=== PATIENT | female | born 1955 | race Caucasian/White ===

== ENCOUNTER → 2017-01-09 | Outpatient (CLI) | payer BC ==
[~2017-01-09] MED LIST: ACET-1138 PO; ASPEC325 PO; DOXY100C76 PO; FRRG PO; MULT-506 PO; RXC5 PO; VITACAP14 PO
== END | disposition home or self-care (01) ==
LOC: C.PAPS 15:28
PROVIDERS: ATTEND Obstetrics & Gynecology
DX: Z01.419 Encounter for gynecological examination (general) (routine) without abnormal findings (principal); N95.2 Postmenopausal atrophic vaginitis

== ENCOUNTER 2025-10-24 07:17 | Observation (INO) ==
--- NOTE | 2025-09-29 15:47 | PAT Medication Instructions ---
Medication Instructions Date of Service September 29, 2025 Home Medications levothyroxine 50 mcg tablet 75 mcg PO QAM atorvastatin 20 mg tablet 20 mg PO HS cholecalciferol (vitamin D3) 25 mcg (1,000 unit) tablet (Vitamin D3) 0 mcg PO DAILY DO NOT take the morning of surgery cholecalciferol (vitamin D3) 25 mcg (1,000 unit) tablet (Vitamin D3) 0 mcg PO DAILY Take morning of surgery With a small sip of water, OTHERWISE NOTHING TO EAT OR DRINK AFTER MIDNIGHT: levothyroxine 50 mcg tablet 75 mcg PO QAM Take evening before surgery atorvastatin 20 mg tablet 20 mg PO HS Other Notes If you have any questions please call us at [phone] or [phone] or [phone] or [phone]
--- NOTE | 2025-10-07 08:48 | Anesthesiology Consultation ---
Date of Service October 07, 2025 Assessment & Plan (1) Encounter for pre-operative examination: - Infectious disease screening: Per assessment on 10/07/25- No known recent infectious disease contacts or current infectious disease symptoms. - Outpatient joint assessment: Pt currently scheduled for inpatient pathway. If surgeon requests review for outpatient joint pathway, patient is an acceptable candidate for outpatient joint program from anesthesia standpoint pending surgeon's office assessment that patient is motivated, has good support and completes [facility] Program preop requirements. Chart Review Chart Review: Acceptable Risk for Surgery and Patient seen in Pre Admission Testing Teaching & Discussion Pre-Anesthesia Teaching/Discussion Notes: Instructed NPO after midnight before surgery,except medications with 15 cc of water. Medication instructions provided according to the PAT guidelines. History Surgery Operation Date: 10/24/25 13:00 Proposed Procedures p Right Robotic Total Knee Arthroplasty - Phong Yee DO Height/Weight Height: 5 ft 2 in Weight: 83.6 kg Allergies Allergy/AdvReac Type Severity Reaction Status Date / Time No Known Allergies Allergy Verified 09/29/25 14:34 Medications Home Medications Medication Instructions Recorded Confirmed Last Taken levothyroxine 50 mcg tablet 75 mcg PO QAM 10/09/20 09/29/25 Unknown atorvastatin 20 mg tablet 20 mg PO HS 09/29/25 09/29/25 Unknown cholecalciferol (vitamin D3) 25 0 mcg PO DAILY 09/29/25 09/29/25 Unknown mcg (1,000 unit) tablet (Vitamin D3) Past Medical History Medical History History of colon polyps History of right breast cancer Dx 1990, hx surgery History of vertigo Positional with head movement, "please move slowly" Hyperlipidemia Hypothyroid Osteoarthritis Osteopenia Tinnitus Exercise / Class Metabolic Activity II 4-5 Yardwork/Stairs/Walk up hill (one FS: No CP, no SOB) Past Family History Family History Father Hypertension Heart disease Mother Cancer Denies family history of Hearing loss No family history of adverse response to anesthesia No family history of bleeding disorder Allergies Stroke Asthma Past Surgical History Surgical History H/O bilateral mastectomy 1990 History of anesthesia reaction Awareness during left knee replacement surgery, could hear sounds, no pain (2016, [facility]) History of colonoscopy History of left knee replacement (2016) Past Anesthesia History No Family Hx of Anesthesia Complications and Other (Awareness during left knee replacement surgery, could hear sounds, no pain (2016, [facility])) History of PONV No Hx of PONV and Hx of Motion Sickness Social History Smoking Status: Never smoker Do You Dip or Chew Tobacco: No Hx Alcohol Use: Yes (~1 glass wine every few months) Hx Substance Use: No substance use type: does not use Review of Systems Patient denies chest pain, shortness of breath, dyspnea on exertion, fever, chills, cough, wheezing, palpitations. Physical Exam Vital Signs BP 100/66 P 55 TEMP 98.0 SP02 99%RA RESP 16 Physical Full cervical extension range of motion. Full TMJ range of motion. TMD 3 finger breaths Mallampati Score III Dentition: intact, + crowns Lungs: clear throughout to auscultation Cardiac: regular rate and rhythm, no murmurs noted Spine: normal Carotid arteries: negative bruit Extremities: no LE edema Lab Results Anesthesia Preop Results Results Anesthesia Widget: WBC 5.59 K/ul (4.8-10.8) 10/07/25 Hgb 14.1 g/dL (12.0-16.0) 10/07/25 Hct 43.4 % (37.0-47.0) 10/07/25 Plt 228 K/uL (130-400) 10/07/25 Na 140 mmol/L (136-145) 10/07/25 K 4.4 mmol/L (3.5-5.1) 10/07/25 Cl 106 mmol/L (98-107) 10/07/25 CO2 29 mmol/L (21-32) 10/07/25 BUN 15 mg/dl (6-23) 10/07/25 Creat 0.75 mg/dl (0.6-1.2) 10/07/25 Glucose Level 88 mg/dl (70-99(Fasting)) 10/07/25 PT 10.6 Seconds (9.0-12.0) 10/07/25 PTT 25 Seconds (21-31) 10/07/25 INR 1.0 (0.9-1.1) 10/07/25 Blood Type A Positive 10/07/25 Antibody Screen NEGATIVE 10/07/25 Testing Electrocardiogram Date: 10/07/25 SB at 53bpm. "Otherwise normal ECG" Chest X-Ray Date: 10/07/25 FINDINGS: Heart size and pulmonary vasculature are normal. No consolidation or pleural effusion. IMPRESSION: No acute findings.
[~2025-10-24 07:17] MED LIST changes: -ACET-1138 PO; -ASPEC325 PO; +BUPIVACAINE 0.25% PF 30 ML VIAL ONE; +BUPIVACAINE 0.5 % 5 MG/1 ML PF 10ML VIAL ONE; -DOXY100C76 PO; -FRRG PO; +LR 15ML/HR IV SCH; -MULT-506 PO; -RXC5 PO; -VITACAP14 PO
[2025-10-24] MEDS ORDERED: MIDAZOLAM HCL 1 MG/ML 2ML VIAL ONE (07:24)
[2025-10-24] MEDS ORDERED: PROPOFOL IV EMULSION 10 MG/ML 20 ML VIAL IV ONE ×3 (07:24)
[2025-10-24] MEDS ORDERED: ONDANSETRON INJ 2 MG/ML 2 ML VIAL ONE (07:24)
[2025-10-24] MEDS: LR 500ML BOLUS, THEN 15ML/HR IV SCH (07:51)
[2025-10-24] MEDS: GABAPENTIN 300 MG CAP PO SCH (07:51)
[2025-10-24] MEDS: ACETAMINOPHEN 500 MG TAB PO SCH ×2 (07:51→14:56)
[2025-10-24] MEDS: FAMOTIDINE 20 MG TAB PO SCH (07:51)
[2025-10-24] MEDS: dexAMETHasone**PF** 10 MG/ML VIAL IV SCH (08:01)
[2025-10-24] MEDS: LR 60ML/HR IV SCH (08:01)
--- NOTE | 2025-10-24 08:16 | History & Physical Bridge Note ---
Date of Service October 24, 2025 History & Physical Bridge Note I have examined the patient, reviewed the History & Physical and in the interval since the performance of the History & Physical I have noted the following changes of clinical significance: no changes noted
[2025-10-24] MEDS ORDERED: ATROPINE SULFATE 0.1 MG/ML 10ML SYR IV PRN (08:46)
[2025-10-24] MEDS ORDERED: PROMETHAZINE HCL 6.25 MG in SODIUM CHLORIDE 0.9% 50 ML IV PRN (08:46)
[2025-10-24] MEDS ORDERED: ONDANSETRON INJ 2 MG/ML 2 ML VIAL IV PRN ×2 (08:46→14:29)
[2025-10-24] MEDS: TRANEXAMIC ACID 1,000 MG **IV Pre-op IV SCH (08:51)
[2025-10-24] MEDS: ROPIV 0.5% 246mg, Ketorolac 30mg, EPINEPHrine 0.5mg in NSS INFIL SCH (09:43)
[2025-10-24] MEDS: ORTHO JOINT ANESTHETIC ONE (09:43)
--- NOTE | 2025-10-24 10:20 | Operative Report ---
PG Post Operative Report Pre & Post Diagnosis Operation Date: 10/24/25 09:00 Pre-Op Diagnosis: Osteoarthritis Knee Right Post-Op Diagnosis: Osteoarthritis Knee Right I identified the patient and participated in the time-out.: Yes Procedure Operation Date: 10/24/25 09:00 Actual Procedures p Robotic Assisted Right Total Knee Arthroplasty(Right) - Phong Yee DO Surgeon Phong Yee DO Intramural Director Pramdo Vincent PA-C Estimated Blood Loss 30 Findings Consistent with Post-Op Diagnosis Specimens Right femoral and tibial bone Description of Procedure Implants used: I used a [employer] total knee arthroplasty system with a size 8 narrow PS femur, D tibia, 32 patella, and a size 12 CPS polyethylene bearing. All c omponents were press-fit in place. Nohemy arrived [facility] for the above procedure. She was seen in the preoperative holding area and the operative extremity was identified and signed. She was given a preoperative antibiotic, TXA, a spinal anesthetic and an adductor nerve block. She was taken back to the operating room and laid on the table in supine position. She was given basic sedation. The operative knee was then prepped and draped in sterile fashion. A timeout was done, and the patient and the operative extremity was properly identified. A midline incision was made directly over the patella. Dissection was taken down to the extensor mechanism. A medial parapatellar arthrotomy was used. The medial retinaculum was released and the fat pad was mostly excised. The knee was flexed and the ACL, PCL, and meniscus were removed. The alignment of the knee replacement was assisted with a [employer] robotic knee. The femoral array was pinned in the distal femur and the tibial array was pinned using a percutaneous technique in the upper shaft of the tibia. The robot was appropriately calibrated and the structure of the knee was mapped out. The components were then manipulated on the screen to account for any malalignment and to assist in gap balancing. Once I was happy with the placement of the components on the screen, a distal femoral cutting guide was brought in place. The distal femur was then resected. The femur measured to be a size 8. A 4-in-1 cutting block was then put into place by the robot and 2 peg holes were drilled. The 4-in-1 cutting block was then impacted into place and anterior, posterior, and chamfer cuts were made. The cutting block was then brought down to the tibia and pinned into place. The proximal tibia was then resected. The posterior aspect of the knee was then opened up and any additional meniscus fragments and osteophytes were removed. The tibia measured to be a size D. The tibial plate was then placed in the appropriate rotation and the tibia was drilled and punched. Trial components were then placed. The patella was then everted and 9 mm was resected off the posterior aspect of the patella. The patella measured to be a size 32. 3 peg holes were then drilled. A trial patella was placed. A size 12 CPS polyethylene insert was then trialed. The knee was brought through a full range of motion and felt to be stable. Trial components were then removed. The surrounding soft tissues were injected with 100 cc of an orthopedic pain control cocktail. All components were then press-fit into place. The final polyethylene insert was then snapped into place. The tourniquet was deflated. Hemostasis was obtained. Irrisept solution was then done for 3 minutes. The joint was then irrigated with normal saline solution. The medial parapatellar arthrotomy was then closed with #1 Vicryl suture. The skin was closed with 2-0 Vicryl, 3-0V lock suture, and [place] Zipline. A soft compressive dressing was placed. She was then transferred to a hospital bed and taken to the postanesthesia care unit in stable condition. She tolerated the procedure well. Pramod Vincent PA-C, was present for the entire procedure. He was critical for patient positioning, prepping, draping, retraction exposure, wound closure and application of sterile dressing. I attest to the content of the Intraoperative Record and any orders documented therein. Any exceptions are noted below.
--- NOTE | 2025-10-24 11:14 | XRay Report ---
XR knee RT 1 or 2V routine CLINICAL HISTORY: Surgical Post Op COMPARISON: 06/28/2025 FINDINGS: There are postsurgical changes of a total right knee arthroplasty and patellar resurfacing . The femoral tibial components appear well seated. There is gas within soft tissues consistent with recent surgery. Small lucencies within the distal femur and proximal tibia are felt to be postsurgica l. IMPRESSION: 1. Postsurgical changes of a total right knee arthroplasty. ACT 112: Negative or not required by law. Electronically signed by: Lele Kuhn M.D. 10/24/2025 11:13 AM
--- NOTE | 2025-10-24 13:51 | Anesthesiology Progress Note ---
Date of Service October 24, 2025 Anesthesia Post Procedure Vital Signs Vital Signs: Temp Pulse Pulse Resp BP Pulse Ox O2 Del Method 10/24/25 13:30 54 L 16 128/74 96 Room Air 10/24/25 13:15 68 18 134/80 96 Room Air 10/24/25 13:00 57 L 16 144/73 H 96 Room Air 10/24/25 12:45 54 L 16 154/81 H 95 Room Air 10/24/25 12:30 55 L 18 146/73 H 99 Room Air 10/24/25 12:20 58 L 16 119/79 97 Room Air 10/24/25 12:10 36.4 C L 57 L 18 149/81 H 100 Room Air 10/24/25 12:00 61 16 122/74 97 Room Air 10/24/25 11:50 60 20 149/81 H 100 Room Air 10/24/25 11:40 56 L 18 135/72 99 Room Air 10/24/25 11:30 62 18 143/82 H 100 Oxymask 10/24/25 11:20 61 12 145/79 H 100 Oxymask 10/24/25 11:10 58 L 16 120/70 100 Oxymask 10/24/25 11:00 62 18 118/72 100 Oxymask 10/24/25 11:00 72 16 125/73 100 Oxymask 10/24/25 10:50 36.0 C L 74 18 119/64 100 Oxymask 10/24/25 07:38 36.8 C 56 L 20 151/74 H 97 Room Air O2 Flow Rate 10/24/25 13:30 10/24/25 13:15 10/24/25 13:00 10/24/25 12:45 10/24/25 12:30 10/24/25 12:20 10/24/25 12:10 10/24/25 12:00 10/24/25 11:50 10/24/25 11:40 10/24/25 11:30 4 10/24/25 11:20 4 10/24/25 11:10 4 10/24/25 11:00 4 10/24/25 11:00 6 10/24/25 10:50 6 10/24/25 07:38 Transfer of Care Handoff Completed per policy Notes Mental Status: alert / awake / arousable and participated in evaluation Patient Amnestic to Procedure: Yes Nausea / Vomiting: adequately controlled Pain: adequately controlled Airway Patency, RR, SpO2: stable & adequate BP & HR: stable & adequate Hydration State: stable & adequate Neuraxial Anesthesia: was administered and sensory block is resolving Anesthetic Complications: no major complications apparent and Pt Satisfied with anesthetic care
[2025-10-24] MEDS ORDERED: NALOXONE HCL 0.4 MG/1 ML VIAL/CARP IV PRN (14:29)
[2025-10-24] MEDS ORDERED: HYDROmorphone INJ 0.5 MG/0.5 ML SYR IV PRN (14:29)
[2025-10-24] MEDS ORDERED: MAGNESIUM HYDROXIDE SUSP 30 ML UDC PO PRN (14:29)
[2025-10-24] MEDS ORDERED: METOCLOPRAMIDE HCL INJ 5 MG/ML 2 ML VIAL IV PRN (14:29)
[2025-10-24] MEDS: KETOROLAC TROMETHAMINE 15 MG/ML VIAL IV SCH (14:56)
[2025-10-24] MEDS: SODIUM CHLORIDE 0.9% 1,000 ML IV SCH (14:56)
[2025-10-24] MEDS: DOCUSATE SODIUM 100 MG CAP PO SCH (21:34)
[2025-10-24] MEDS: SENNA 8.6 MG TAB PO SCH (21:34)
[2025-10-24] MEDS: ASPIRIN 81 MG ECTAB PO SCH (21:34)
[2025-10-24] MEDS: ATORVASTATIN 20 MG TAB PO SCH (21:35)
[2025-10-25] MEDS: LEVOTHYROXINE SODIUM 75 MCG TABLET PO SCH (05:58)
[2025-10-25 07:12] VITALS: BP 125/74; PULSE 55; RESP 16; TEMP 97.7; O2SAT 97
[2025-10-25] MEDS: MULTIVITAMIN TAB PO SCH (07:41)
--- NOTE | 2025-10-25 08:55 | Orthopedic Progress Note ---
Date of Service October 25, 2025 Assessment & Plan (1) Status post total right knee replacement: * Continue Current Treatment * Disposition: home * Daily treatment: Physical Therapy/ Occupational Therapy per protocol * Weight bearing status: WBAT * Continue to monitor for ABLA * Pain control * DVT prophylaxis, ASA * Office/hospital f/u 2 weeks for progress check and staple/suture removal * Plan for discharge today pending PT/OT clearance Subjective . Active Problems: S/p right TKA POD 1 69 y/o female s/p right TKA. Doing well overall, pain managed and improved function. Denies fever/chills, chest pain/SOB, nausea/vomiting. Otherwise no complaints. Review of Systems All systems reviewed & are unremarkable except as noted in HPI & below. Physical Exam . * General: Alert and oriented, no acute distress * Constitutional: well-developed, well-nourished. * Respiratory: Normal respiratory effort, no distress * Gastrointestinal: No tenderness to palpation, no rigidity or guarding. * Skin: No rash or lesion. * Neurologic: Grossly normal * Musculoskeletal: right knee surgical dressing CDI, not removed for exam. Otherwise no obvious deformity or overlying skin changes RLE. Diffuse TTP distal thigh and knee region. Otherwise no specific tenderness of proximal thigh, lower leg, foot/ankle. AROM knee flexion 90 degrees. AROM foot/ankle intact. Sensation intact plantar/dorsal foot. Brisk capillary refill. Results & Data Results & Data Laboratory Results . Diagnostic Findings . Knee X-Ray 10/24/25 10:52 XR knee RT 1 or 2V routine CLINICAL HISTORY: Surgical Post Op COMPARISON: 06/28/2025 FINDINGS: There are postsurgical changes of a total right knee arthroplasty and patellar resurfacing. The femoral tibial components appear well seated. There is gas within soft tissues consistent with recent surgery. Small lucencies within the distal femur and proximal tibia are felt to be postsurgical. IMPRESSION: 1. Postsurgical changes of a total right knee arthroplasty. ACT 112: Negative or not required by law. Electronically signed by: Lele Kuhn M.D. 10/24/2025 11:13 AM PG Care Time/CCT Total # of Minutes Spent Total Time Spent with Patient: Total time spent is greater than 50% in coordination of care (as documented) at patient's floor/unit and/or counseling patient: Coding Level of Care Code 03726 Post Operative Follow-Up Diagnoses Status post total right knee replacement Z96.651
== END 2025-10-25 10:51 | disposition home or self-care (01) ==
LOC: 3E 07:17 → ASU 07:17

== ENCOUNTER 2025-11-15 17:06 | Observation (INO) ==
--- NOTE | 2025-11-15 17:29 | Emergency Department Note ---
Impression & Plan Acute upper gastrointestinal bleeding, Anemia ED Provider Note NAME: SAL RENDON AGE: 70 SEX: F : 1955 ARRIVES VIA: Walk-In INFORMANT: Patient, ED PROVIDER(S): Obinna Rios DO CHIEF COMPLAINT: GI bleeding HPI: The patient is a 70-year-old female who presented to the emergency department directly from her primary care physician's office. The patient has not feeling well over the last several days. She has had dark stool. She has had nausea. She has recently had a knee replacement. She has been taking baby aspirin for DVT prophylaxis from this. She does not have a history of NSAID use. She has no history of upper GI bleeding. She was seen in the office and had a heme test on her stool that was positive. She was sent to the emergency department for further evaluation. ROS: See above HPI for pertinent positives & negatives. A total of 10 systems reviewed and were otherwise negative. PAST MEDICAL HISTORY: See Below PAST SURGICAL HISTORY: See Below FAMILY HISTORY: See Below SOCIAL HISTORY: See Below HOME MEDICATIONS: See Below ALLERGIES: See Below VITALS: See Below PHYSICAL EXAMINATION: GENERAL: Patient is awake alert in no acute distress patient is resting comfortably and showing no signs of anxiety EYES: The conjunctivae are clear. The pupils are round and reactive. EARS, NOSE, MOUTH AND THROAT: The nose is without any evidence of any deformity NECK: The neck is nontender and supple. RESPIRATORY: Normal respiratory effort is noted there is no evidence of wheezing rhonchi or rales CARDIOVASCULAR: Regular rate and rhythm noted there no murmurs rubs or gallops normal S1 normal S2. GASTROINTESTINAL: The abdomen is soft. Abdomen is nontender. MUSCULOSKELETAL/EXTREMITIES: There is no evidence of gross deformity full range of motion is noted in the hips and shoulders. SKIN: There is no obvious evidence of any rash. There are no petechiae, pallor or cyanosis noted. NEUROLOGIC: Patient is awake alert and oriented x3 MEDICAL DECISION MAKING: The patient is a 70-year-old female who presented to the emergency department directly from her primary care physician's office. The patient was complaining of dark stool. She has been on aspirin status post right knee surgery. The patient was found to have heme positive stool in the office and was sent to the emergency department for further evaluation. I discussed the patient's laboratory and radiographic studies with her. I discussed her condition with the on-call cake batter mixer. They did recommend inpatient management. This reason I discussed her condition with the on-call [facility] hospitalist. They have agreed to evaluate the patient in the emergency department for further management and disposition. Triage Nursing notes reviewed. Prior medical records reviewed Vital Signs: reviewed and remarkable for no significant abnormalities Differential diagnosis: Diverticulosis, AVM, coagulopathy, colitis, inflammatory bowel disease, malignancy, Candice-Cavazos tear, esophagitis, peptic ulcer disease, variceal bleed, gastritis, epistaxis, fissure, hemorrhoids, as well as other pathologies. ER treatment provided: See below Diagnostics interpreted by me: ECG: EKG was obtained in the emergency department. My interpretation is normal sinus rhythm at 63 bpm. There is no ectopy. Nonspecific ST abnormalities are noted. This was great to a tracing from October 07, 2025. No changes were noted. Cardiac Monitoring: An order was placed for continuous cardiac monitoring. The monitor shows a rate of 67 bpm with sinus rhythm. Laboratory studies: As stated above and show below. Imaging studies: See below. Radiographic imaging was reviewed by myself Consultation(s): I discussed this case with Dr. Jean who is on-call for the gastroenterology group. I discussed this case with Dr. Hutchison who is on-call for the [facility] hospitalist group. Past Med/Surg History Problem List (Updated 11/15/25 @ 23:40 by Obinna Rios DO) Anemia (Acute) Acute upper gastrointestinal bleeding (Acute) Status post total right knee replacement DJD (degenerative joint disease) of knee Osteoarthritis of right knee Benign paroxysmal positional vertigo of left ear Impacted cerumen of both ears Tinnitus, bilateral Sensorineural hearing loss (SNHL) of left ear with restricted hearing of right ear Medical History History of vertigo Positional with head movement, "please move slowly" History of right breast cancer Dx 1990, hx surgery Osteoarthritis Osteopenia History of colon polyps Tinnitus Hyperlipidemia Hypothyroid Surgical History History of anesthesia reaction Awareness during left knee replacement surgery, could hear sounds, no pain (2016, [facility]) History of left knee replacement (2016) History of colonoscopy H/O bilateral mastectomy 1990 Family History Father Hypertension Heart disease Mother Cancer Denies family history of Hearing loss No family history of adverse response to anesthesia No family history of bleeding disorder Allergies Stroke Asthma Social History Smoking Status: Never smoker Do You Dip or Chew Tobacco: No; Hx Alcohol Use: Yes (~1 glass wine every few months) Alcohol Intake Frequency: Monthly or Less Hx Substance Use: No Preferred Language: Nepali Communication Ability: Effective Rehabilitation Attendant Required: No Beliefs That Will Affect Care: None marital status: Current Living Situation: Spouse current occupational status: retired How many Children do You have: 0 Feels Safe at Home: Yes Assistive Devices: Cane and Walker Allergies Allergies Allergy/AdvReac Type Severity Reaction Status Date / Time No Known Allergies Allergy Verified 10/24/25 07:22 Home Meds Home Medications Medication Instructions Recorded Confirmed levothyroxine 50 mcg tablet 75 mcg PO QAM 10/09/20 11/15/25 atorvastatin 20 mg tablet 20 mg PO HS 09/29/25 11/15/25 cholecalciferol (vitamin D3) 25 0 mcg PO DAILY 09/29/25 11/15/25 mcg (1,000 unit) tablet (Vitamin D3) Previous Rx's Medication Instructions Recorded cefadroxil 500 mg capsule 500 mg PO BID #20 caps 10/25/25 tramadol 50 mg tablet 50 mg PO Q6H PRN pain #30 tabs 11/03/25 Results & Data (ED) Vital Signs Vital Signs - 24 hr 11/15/25 17:07 11/15/25 17:11 11/15/25 17:16 Temperature 36.8 C Temperature Source Temporal Artery Scan Pulse Rate 82 61 Pulse Rate [Apical] 62 Respiratory Rate 18 18 18 Respiratory Effort / Characteristics Non-Labored Spontaneous Respiratory Depth Normal Blood Pressure 139/83 Blood Pressure [Right Arm] 173/95 H Blood Pressure Mean 101 Blood Pressure Mean [Right Arm] 121 Blood Pressure Position Sitting Pulse Oximetry 100 100 100 Oxygen Delivery Method Room Air Room Air Room Air Sepsis Recent Fever Within 48 Hours No Sepsis New/Unexplained Change in Mental Status No Sepsis Action Taken by Nursing No Action Required 11/15/25 17:50 11/15/25 19:07 11/15/25 21:00 Temperature Temperature Source Pulse Rate 59 L Pulse Rate [Apical] 62 66 Respiratory Rate 18 18 Respiratory Effort / Characteristics Respiratory Depth Blood Pressure Blood Pressure [Right Arm] 171/88 H 149/83 H Blood Pressure Mean Blood Pressure Mean [Right Arm] 115 105 Blood Pressure Position Pulse Oximetry 99 99 Oxygen Delivery Method Room Air Room Air Sepsis Recent Fever Within 48 Hours Sepsis New/Unexplained Change in Mental Status Sepsis Action Taken by Snf Medications Current Medication List: was personally reviewed by me Laboratory Data Attestation: I reviewed the patient's lab results. 11/15/25 17:35 11/15/25 17:35 Lab Results 11/15/25 11/15/25 Range/Units 17:35 17:46 WBC 10.24 (4.8-10.8) K/ul RBC 4.06 L (4.20-5.40) M/uL Hgb 11.8 L (12.0-16.0) g/dL Hct 36.7 L (37.0-47.0) % MCV 90.4 (80.0-100.0) fL MCH 29.1 (25.0-34.0) pg MCHC 32.2 (32.0-36.0) g/dL RDW Std Deviation 48.3 H (36.4-46.3) fL RDW Coeff of Babak 14.7 H (11.5-14.5) % Plt Count 376 (130-400) K/uL MPV 9.2 L (9.4-12.4) fL Immature Gran % (Auto) 0.4 % Neut % (Auto) 79.3 % Lymph % (Auto) 14.8 % Lee % (Auto) 4.6 % Eos % (Auto) 0.5 % Baso % (Auto) 0.4 % Neut # (Auto) 8.12 H (1.40-6.50) K/uL Lymph # (Auto) 1.52 (1.20-3.40) K/uL Lee # (Auto) 0.47 (0.11-0.59) K/uL Eos # (Auto) 0.05 (0.00-0.50) K/uL Baso # (Auto) 0.04 (0.00-0.20) K/uL Immature Gran # (Auto) 0.04 (0.01-0.20) K/uL PT 11.3 (9.0-12.0) Seconds INR 1.1 (0.9-1.1) Sodium 137 (136-145) mmol/L Potassium 3.7 (3.5-5.1) mmol/L Chloride 102 (98-107) mmol/L Carbon Dioxide 24 (21-32) mmol/L Anion Gap 11 (3-11) BUN 13 (6-23) mg/dl Creatinine 0.68 (0.6-1.2) mg/dl Est Cr Clr Drug Dosing 73.4 ml/min eGFR 92.48 BUN/Creatinine Ratio 19.1 (10-20) Glucose 103 H (70-99(Fasting)) mg/dl Calcium 8.9 (8.6-10.3) mg/dl Total Bilirubin 0.7 (0.2-1.0) mg/dl AST 18 (13-39) U/L ALT 18 (7-52) U/L Alkaline Phosphatase 156 H (34-104) U/L Troponin I High Sens 6.9 (0-14) pg/ml Total Protein 6.9 (6.0-8.3) gm/dl Albumin 3.8 (3.4-5.0) gm/dl Globulin 3.1 (2.5-4.0) gm/dl Albumin/Globulin Ratio 1.2 (0.9-2) Lipase 23 (11-82) U/L Blood Type A Positive Antibody Screen NEGATIVE Administered Medications Famotidine (Pepcid 20mg Iv Push) 20 mg in 5 mls @ 2.5 mls/min IV Q12 MELIZA Stop: 12/15/25 21:59 Last Admin: 11/15/25 22:30 Dose: 2.5 mls/min Documented By: asm Discontinued Medications Pantoprazole Sodium (Protonix) 40 mg in 10 mls @ 5 mls/min IV NOW ONE Stop: 11/15/25 17:17 Last Admin: 11/15/25 17:58 Dose: 5 mls/min Documented By: erm Famotidine (Pepcid 20mg Iv Push) 20 mg in 5 mls @ 2.5 mls/min IV NOW STA Stop: 11/15/25 17:17 Last Admin: 11/15/25 17:59 Dose: 2.5 mls/min Documented By: mendez Imaging Data Attestation: I personally reviewed and interpreted this imaging study as follows: My Impression: 1 view chest x-ray was obtained in the emergency department. My interpretation is no free air or definite infiltrate, final report below. Radiologist's Impression: Chest X-Ray 11/15/25 17:16 EXAM: Radiograph of the Chest 1 View INDICATION: Gastrointestinal bleeding TECHNIQUE: Frontal view of the chest. COMPARISON: 10/07/2025 FINDINGS: Lungs and pleural spaces: No consolidation or pulmonary edema. No pleural effusion or pneumothorax. Heart: Shape and configuration within normal limits allowing for technique. Mediastinum: Normal contour. Bones/joints: No fracture, erosion or dislocation. Soft tissues: No abnormality noted. No radiopaque foreign body noted. Vasculature: Mild ectatic calcified aorta. Upper abdomen: No visible free air subjacent to the diaphragms. IMPRESSION: No acute cardiopulmonary disease. ACT 112: N/A Electronically signed by Sheila Tate 11-15-2025 6:31 PM Discharge Plan Visit Data Chief Complaint: GI Bleed Stated Complaint: NAUSEA, TIRED, LOSS OF APPETITE, BLOOD IN STOOL ED Provider: Obinna Rios Discharge Problem: Acute upper gastrointestinal bleeding, Anemia Patient Disposition: Admitted As Inpatient Condition: Fair Discharge Instructions Interventions: ED Discharge Assessment Last Done: 11/15/25 21:58
[2025-11-15 17:55] LABS: Hematocrit (blood only) 36.7 % (37.0-47.0); Hemoglobin 11.8 g/dL (12.0-16.0); Immature Granulocytes # (auto) 0.04 K/uL (0.01-0.20); Immature Granulocytes % (auto) 0.4 %; Mean Corpuscular Hemoglobin 29.1 pg (25.0-34.0); Mean Corpuscular Volume 90.4 fL (80.0-100.0); Platelet Count 376 K/uL (130-400); RDW Standard Deviation 48.3 fL (36.4-46.3); Red Blood Count 4.06 M/uL (4.20-5.40); White Blood Count 10.24 K/ul (4.8-10.8)
[2025-11-15] MEDS: PANTOprazole 40 MG/10 ML SYR IV ONE (17:58)
[2025-11-15] MEDS: FAMOTIDINE 20MG IV PUSH 20 MG/5 ML SYR IV STA (17:59)
[2025-11-15 18:10] LABS: Alanine Aminotransferase 18.0 U/L (7-52); Albumin Globulin Ratio 1.2 (0.9-2); Albumin Level 3.8 gm/dl (3.4-5.0); Alkaline Phosphatase 156.0 U/L (34-104); Anion Gap 11.0 (3-11); Bilirubin,Total 0.7 mg/dl (0.2-1.0); Blood Urea Nitrogen 13.0 mg/dl (6-23); Calcium 8.9 mg/dl (8.6-10.3); Carbon Dioxide 24.0 mmol/L (21-32); Chloride 102.0 mmol/L (98-107); Creatinine Clr Calc Pharmacy 73.4 ml/min; Globulin 3.1 gm/dl (2.5-4.0); Glucose 103.0 mg/dl (70-99(Fasting)); Lipase 23.0 U/L (11-82); Potassium 3.7 mmol/L (3.5-5.1); Sodium 137.0 mmol/L (136-145); Total Protein 6.9 gm/dl (6.0-8.3)
[2025-11-15 18:17] LABS: INR 1.1 (0.9-1.1); Prothrombin Time 11.3 Seconds (9.0-12.0)
--- NOTE | 2025-11-15 18:32 | XRay Report ---
EXAM: Radiograph of the Chest 1 View INDICATION: Gastrointestinal bleeding TECHNIQUE: Frontal view of the chest. COMPARISON: 10/07/2025 FINDINGS: Lungs and pleural spaces: No consolidation or pulmonary edema. No pleural effusion or pneumothorax. Heart: Shape and configuration within normal limits allowing for technique. Mediastinum: Normal contour. Bones/joints: No fracture, erosion or dislocation. Soft tissues: No abnormality noted. No radiopaque foreign body noted. Vasculature: Mild ectatic calcified aorta. Upper abdomen: No visible free air subjacent to the diaphragms. IMPRESSION: No acute cardiopulmonary disease. ACT 112: N/A Electronically signed by Sheila Tate 11-15-2025 6:31 PM
--- NOTE | 2025-11-15 21:21 | History & Physical Report ---
Date of Service November 15, 2025 Assessment & Plan (1) Anemia: (2) Acute upper gastrointestinal bleeding: (3) Elevated alkaline phosphatase level: Plan 70-year-old female PMHx SNHL L ear, BPPV, OA, and MARIANELA s/p total R knee replacement presenting for dark stools with nausea and vomiting starting 9 days STONE FABRICATOR. Evaluation does reveal anemia of 11.8/36.7 with stable platelets and grossly unremarkable CMP. Alkaline phosphatase is however elevated at 156. Admission for anemia, suspected GI bleed. #Anemia/? GI bleed Postop 10/24/2025 R knee replacement, with dark stools and N/V ongoing since 11/06/2025. 81 mg of aspirin daily currently. No NSAID use, no coffee-ground emesis. - H&H 11.8/36.7, platelets WNL; BUN 13 - CBC, BMP am - EKG pending - Clear liquid for now, NPO midnight - IVF LR @ 80 mL/hr - Hold ASA - Zofran prn N/V - Pantoprazole 40 mg IV BID + famotidine 20 mg IV BID - GI consulted - appreciate input + recs #Elevated alkaline phosphatase No abdominal pain, no RUQ tenderness. Recent R knee replacement, ? bone turnover response. - Alkaline phosphatase 156 - Trend as appropriate - Hold atorvastatin day of arrival #Hypothyroidism- Levothyroxine - continue once diet Dispo: Obs, med/tele VTE prophylaxis: SCDs This document was dictated utilizing [employer]. Please excuse any grammatical errors that may be secondary to use of this software. Admission and Anticipated Discharge Date Admission Date: 11/15/2025 History of Present Illness Chief Complaint: N/V, black stool Primary Care Provider: Ramesh Cardenas, 70-year-old female PMHx SNHL L ear, BPPV, OA, and MARIANELA s/p total R knee replacement presenting for dark stools with nausea and vomiting starting 9 days STONE FABRICATOR. Reports that starting on 11/06/2025 she started to note that she was having dark stool, black in nature. Also reports that she has had some constipation which has been ongoing since her recent procedure on her R knee (replacement), as she has not been eating much. Every time that she eats, she states that she is experiencing nausea, sometimes with vomiting other times not. She states that some days are worse than others, but on the day of arrival she was only able to tolerate half an apple and a few crackers. She is not having any abdominal pain, but the vomiting does continue. She continues to experience anorexia. Her only dizziness is with position changes, none at baseline and no lightheadedness. Overall, patient's pain is tolerated with her recent knee surgery. She is denying chest pain, SOB, palpitations, abdominal pain, d iarrhea, URI symptoms, LUTS, weakness, syncope, or falls. Main concern is that her stool is very dark in nature. ED evaluation CBC without leukocytosis or leukopenia, H&H 10.8/36.7, platelets stable; PT/INR WNL; CMP BUN WNL, glucose 103, alkaline phosphatase 156; troponin 6.9; CXR no acute findings.; Provided with pantoprazole 40 mg IV, famotidine 20 mg IV in ED. Please see Dr. Weston attestation for adjustments/additions to treatment plan. Allergies Allergy/AdvReac Type Severity Reaction Status Date / Time No Known Allergies Allergy Verified 10/24/25 07:22 Home Medications Medication Instructions Recorded Confirmed Type levothyroxine 50 mcg tablet 75 mcg PO QAM 10/09/20 11/15/25 History atorvastatin 20 mg tablet 20 mg PO HS 09/29/25 11/15/25 History cholecalciferol (vitamin D3) 25 0 mcg PO DAILY 09/29/25 11/15/25 History mcg (1,000 unit) tablet (Vitamin D3) tramadol 50 mg tablet 50 mg PO Q6H PRN pain #30 tabs 11/03/25 11/15/25 Rx enoxaparin 40 mg/0.4 mL 40 mg (0.4 mL) subcut TODAY@0900 11/16/25 Rx subcutaneous syringe (Lovenox) 30 days #12 mL pantoprazole 40 mg tablet,delayed 40 mg PO BID #60 tabs 11/16/25 Rx release Past Med/Surg History Problem List (Updated 11/16/25 @ 08:48 by Floridalma Oscar PA-C) Melena Elevated alkaline phosphatase level Anemia (Acute) Acute upper gastrointestinal bleeding (Acute) Status post total right knee replacement DJD (degenerative joint disease) of knee Osteoarthritis of right knee Benign paroxysmal positional vertigo of left ear Impacted cerumen of both ears Tinnitus, bilateral Sensorineural hearing loss (SNHL) of left ear with restricted hearing of right ear Medical History History of vertigo Positional with head movement, "please move slowly" History of right breast cancer Dx 1990, hx surgery Osteoarthritis Osteopenia History of colon polyps Tinnitus Hyperlipidemia Hypothyroid Surgical History History of anesthesia reaction Awareness during left knee replacement surgery, could hear sounds, no pain (2016, [facility]) History of left knee replacement (2016) History of colonoscopy H/O bilateral mastectomy 1990 Family History Father Hypertension Heart disease Mother Cancer Denies family history of Hearing loss No family history of adverse response to anesthesia No family history of bleeding disorder Allergies Stroke Asthma Social History Smoking Status: Never smoker Do You Dip or Chew Tobacco: No; Hx Alcohol Use: No Hx Substance Use: No Preferred Language: Guyanese Communication Ability: Effective Desk Director Required: No Beliefs That Will Affect Care: None marital status: Current Living Situation: Spouse Current Living Situation Comment: [id number] [facility]ER current occupational status: retired How many Children do You have: 0 Feels Safe at Home: Yes Assistive Devices: Cane and Walker Review of Systems Review of Systems: All systems reviewed & are unremarkable except as noted in Subjective Physical Exam Physical Exam: General: No acute distress Skin: Warm and dry Head: Normocephalic, atraumatic Eyes: PERRL, conjunctivae clear, sclera non-icteric ENT: Wearing mask; external ear and ear canal without swelling; nose atraumatic; good dentition, tongue normal appearance, pharynx normal Neck: Supple, no LAD Cardio: RRR, no M/G/R, S1 and S2 normal Resp: No respiratory distress, Lungs CTA in all lobes bilaterally, no wheezes, rales, or rhonchi Abdomen: Soft, symmetric, nontender; No masses or hepatosplenomegaly; Bowel sounds normoactive MSK: No deformities; pulses palpable and equal; no edema. Neuro: Awake, alert; Sensation intact bilaterally; CN grossly intact Psych: Appropriate mood and affect; good judgement and insight. present in room at time of visit. Results & Data Results & Data Vital Signs (Past 12 Hours) Vital Signs Temp Pulse Pulse Resp BP BP Pulse Ox 11/15/25 19:07 62 18 171/88 H 99 11/15/25 17:50 59 L 11/15/25 17:16 61 18 100 11/15/25 17:11 36.8 C 82 18 139/83 100 11/15/25 17:07 62 18 173/95 H 100 O2 Del Method 11/15/25 19:07 Room Air 11/15/25 17:50 11/15/25 17:16 Room Air 11/15/25 17:11 Room Air 11/15/25 17:07 Room Air Laboratory Results 11/15/25 11/15/25 17:46 17:35 WBC 10.24 RBC 4.06 L Hgb 11.8 L Hct 36.7 L MCV 90.4 MCH 29.1 MCHC 32.2 RDW Std Deviation 48.3 H RDW Coeff of Babak 14.7 H Plt Count 376 MPV 9.2 L Immature Gran % (Auto) 0.4 Neut % (Auto) 79.3 Lymph % (Auto) 14.8 Coles % (Auto) 4.6 Eos % (Auto) 0.5 Baso % (Auto) 0.4 Neut # (Auto) 8.12 H Lymph # (Auto) 1.52 Coles # (Auto) 0.47 Eos # (Auto) 0.05 Baso # (Auto) 0.04 Immature Gran # (Auto) 0.04 PT 11.3 INR 1.1 Sodium 137 Potassium 3.7 Chloride 102 Carbon Dioxide 24 Anion Gap 11 BUN 13 Creatinine 0.68 Est Cr Clr Drug Dosing 73.4 eGFR 92.48 BUN/Creatinine Ratio 19.1 Glucose 103 H Calcium 8.9 Total Bilirubin 0.7 AST 18 ALT 18 Alkaline Phosphatase 156 H Troponin I High Sens 6.9 Total Protein 6.9 Albumin 3.8 Globulin 3.1 Albumin/Globulin Ratio 1.2 Lipase 23 Blood Type A Positive Antibody Screen NEGATIVE Diagnostic Findings Chest X-Ray 11/15/25 17:16 EXAM: Radiograph of the Chest 1 View INDICATION: Gastrointestinal bleeding TECHNIQUE: Frontal view of the chest. COMPARISON: 10/07/2025 FINDINGS: Lungs and pleural spaces: No consolidation or pulmonary edema. No pleural effusion or pneumothorax. Heart: Shape and configuration within normal limits allowing for technique. Mediastinum: Normal contour. Bones/joints: No fracture, erosion or dislocation. Soft tissues: No abnormality noted. No radiopaque foreign body noted. Vasculature: Mild ectatic calcified aorta. Upper abdomen: No visible free air subjacent to the diaphragms. IMPRESSION: No acute cardiopulmonary disease. ACT 112: N/A Electronically signed by Sheila Tate 11-15-2025 6:31 PM Medications Administered Pantoprazole 40 mg IV Famotidine 20 mg IV Code Status & VTE Plan Code Status Full Supervising Physician Co-Signing Physician Notes Attending addendum: I have physically seen this patient, have supervised the RAGHU's activities, and agree with the H&P unless as otherwise noted. Assessment and Plan: The patient is a 70-year-old female with past medical history including SNHL left ear, BPPV, OA, MARIANELA, and status post right TKA on 10/24/2025. She presents to the emergency department with complaint of dark stool, nausea and vomiting since 11/06. She has been on aspirin 81 mg daily for DVT prophylaxis post TKA. The patient received Protonix 40 mg IV, and famotidine 20 mg IV 20 ED, and was referred for evaluation for admission to the [facility] service. Anemia/upper GI bleeding- N.p.o. after midnight LR at 80 mL/h H&H every 6 hours Hold aspirin Type and screen ordered and pending Zofran 4 mg IV every 6 hours as needed Pantoprazole 40 mg IV twice daily Famotidine 20 mg IV twice daily Consult gastroenterology Remaining orders and notations as noted PG Care Time/CCT Total # of Minutes Spent Total Time Spent with Patient: Total time spent is greater than 50% in coordination of care (as documented) at patient's floor/unit and/or counseling patient: Coding Level of Care Code 03824 INT INP/OBS CARE 3/75MIN Diagnoses Anemia D64.9 Acute upper gastrointestinal bleeding K92.2 Elevated alkaline phosphatase level R74.8
[2025-11-15] MEDS ORDERED: ONDANSETRON INJ 2 MG/ML 2 ML VIAL IV PRN ×2 (21:42→21:58)
[2025-11-15] MEDS: FAMOTIDINE 20MG IV PUSH 20 MG/5 ML SYR IV SCH (22:30)
[2025-11-16] MEDS: LACTATED RINGER'S 1,000 ML IV SCH (03:01)
[2025-11-16 05:56] LABS: Hematocrit (blood only) 32.3 % (37.0-47.0); Hemoglobin 10.5 g/dL (12.0-16.0); Mean Corpuscular Hemoglobin 29.0 pg (25.0-34.0); Mean Corpuscular Volume 89.2 fL (80.0-100.0); Platelet Count 307 K/uL (130-400); RDW Standard Deviation 47.6 fL (36.4-46.3); Red Blood Count 3.62 M/uL (4.20-5.40); White Blood Count 7.14 K/ul (4.8-10.8)
[2025-11-16 06:10] LABS: Alanine Aminotransferase 12.0 U/L (7-52); Albumin Level 3.2 gm/dl (3.4-5.0); Alkaline Phosphatase 130.0 U/L (34-104); Bilirubin,Total 0.7 mg/dl (0.2-1.0); Total Protein 5.8 gm/dl (6.0-8.3)
[2025-11-16] MEDS: PANTOprazole 40 MG/10 ML SYR IV SCH (08:23)
--- NOTE | 2025-11-16 08:39 | Gastrointestinal Consultation ---
Date of Consultation November 16, 2025 Assessment & Plan (1) Melena: -Continue to monitor H/H -Continue IV PPI gtt -Keep NPO -EGD today for further evaluation Supervising Physician Co-Signing Physician Notes I saw and examined this patient with our nurse practitioner and agree with her assessment and plan. Clinical picture consistent with an upper GI bleed. Need to consider peptic ulcer disease, esophagitis, gastritis. Will proceed with endoscopy for further evaluation. History of Present Illness Reason for Consultation: Melena, heme positive stool Attending Physician: Brandee Washington MD History of Present Illness Patient seen in [facility] for [facility]. Patient is a 70 yo female with PMH of BPPV, OA, and arthritis who had total R knee replacement several weeks ago. She notes that over 1 week ago she began having dark stools. There was associated nausea/vomiting. She notes a decreased appetite. She takes a baby Aspirin daily. She took Tramadol after her surgery. She denies any other NSAID use. She went to her PCP and had a heme positive stool. The lab was closed, she was referred to Liya Bernstein for further evaluation. Current H/H 10.5/32.3. Hgb in September was 14.1. She denies abdominal pain, heartburn, reflux, hematochezia. BUN 13. Creatinine 0.68. No other associated symptoms. No history of EGD. Reports last colonoscopy with [facility] GI around 2016. I do not have a copy of this result on admission. She is currently on IV Protonix in the ED. She has been NPO since prior to midnight. Aspirin currently held. Allergies Allergy/AdvReac Type Severity Reaction Status Date / Time No Known Allergies Allergy Verified 10/24/25 07:22 Home Medications Medication Instructions Recorded Confirmed Type levothyroxine 50 mcg tablet 75 mcg PO QAM 10/09/20 11/15/25 History atorvastatin 20 mg tablet 20 mg PO HS 09/29/25 11/15/25 History cholecalciferol (vitamin D3) 25 0 mcg PO DAILY 09/29/25 11/15/25 History mcg (1,000 unit) tablet (Vitamin D3) cefadroxil 500 mg capsule 500 mg PO BID #20 caps 10/25/25 11/15/25 Rx tramadol 50 mg tablet 50 mg PO Q6H PRN pain #30 tabs 11/03/25 11/15/25 Rx Patient History Medical History History of vertigo Positional with head movement, "please move slowly" History of right breast cancer Dx 1990, hx surgery Osteoarthritis Osteopenia History of colon polyps Tinnitus Hyperlipidemia Hypothyroid Surgical History History of anesthesia reaction Awareness during left knee replacement surgery, could hear sounds, no pain (2016, [facility]) History of left knee replacement (2016) History of colonoscopy H/O bilateral mastectomy 1990 Family History Father Hypertension Heart disease Mother Cancer Denies family history of Hearing loss No family history of adverse response to anesthesia No family history of bleeding disorder Allergies Stroke Asthma Social History Smoking Status: Never smoker Do You Dip or Chew Tobacco: No; Hx Alcohol Use: No Hx Substance Use: No Preferred Language: Andorran Communication Ability: Effective Bale Coverer Required: No Beliefs That Will Affect Care: None marital status: Current Living Situation: Spouse Current Living Situation Comment: [id number] [employer] current occupational status: retired How many Children do You have: 0 Feels Safe at Home: Yes Assistive Devices: Walker Review of Systems Constitutional: no fever and no chills Respiratory: no cough Cardiovascular: no chest pain Gastrointestinal: + nausea and + melena; no abdominal pain , no vomiting, no coffee ground emesis and no blood in stools Physical Exam Constitutional: well developed Respiratory: normal respiratory effort Cardiovascular: Rate/Rhythm: regular rate Gastrointestinal (Abdomen): Inspection/Auscultation: abdomen normal to inspection Percussion/Palpation: abdomen nontender Psychiatric: Orientation: alert and oriented x 3 Results & Data Vital Signs (Past 12 Hours) Vital Signs Pulse Pulse Resp BP BP Pulse Ox O2 Del Method 11/16/25 07:12 57 L 11/16/25 06:21 58 L 17 95 11/16/25 06:12 67 18 95 11/16/25 06:00 136/77 11/16/25 06:00 136/77 11/16/25 06:00 136/77 11/16/25 06:00 136/77 11/16/25 06:00 136/77 11/16/25 06:00 57 L 17 97 11/16/25 05:51 60 21 97 11/16/25 05:42 72 19 97 11/16/25 05:30 115/80 11/16/25 05:30 115/80 11/16/25 05:30 115/80 11/16/25 05:30 115/80 11/16/25 05:30 65 14 11/16/25 05:30 115/80 11/16/25 05:30 115/80 11/16/25 05:21 63 17 11/16/25 05:12 63 20 98 11/16/25 05:00 54 L 19 96 11/16/25 05:00 128/78 11/16/25 05:00 128/78 11/16/25 05:00 128/78 11/16/25 05:00 128/78 11/16/25 05:00 128/78 11/16/25 04:51 56 L 19 95 11/16/25 04:42 57 L 17 96 11/16/25 04:30 137/86 11/16/25 04:30 137/86 11/16/25 04:30 137/86 11/16/25 04:30 137/86 11/16/25 04:30 137/86 11/16/25 04:30 61 20 97 11/16/25 04:21 58 L 19 96 11/16/25 04:12 66 19 95 11/16/25 04:00 138/84 11/16/25 04:00 138/84 11/16/25 04:00 138/84 11/16/25 04:00 138/84 11/16/25 04:00 138/84 11/16/25 04:00 61 18 96 11/16/25 03:51 57 L 20 95 11/16/25 03:42 57 L 20 95 11/16/25 03:30 65 18 97 11/16/25 03:30 140/80 11/16/25 03:30 140/80 11/16/25 03:30 140/80 11/16/25 03:30 140/80 11/16/25 03:30 140/80 11/16/25 03:21 63 18 96 11/16/25 03:12 62 17 96 11/16/25 03:00 71 12 99 11/16/25 03:00 143/83 H 11/16/25 03:00 143/83 H 11/16/25 03:00 143/83 H 11/16/25 03:00 143/83 H 11/16/25 03:00 143/83 H 11/16/25 02:51 58 L 22 97 11/16/25 02:42 59 L 24 96 11/16/25 02:30 59 L 19 96 11/16/25 02:30 124/76 11/16/25 02:30 124/76 11/16/25 02:30 124/76 11/16/25 02:30 124/76 11/16/25 02:30 124/76 11/16/25 02:21 54 L 24 97 11/16/25 02:12 64 24 97 11/16/25 02:00 56 L 17 96 11/16/25 02:00 125/76 11/16/25 02:00 125/76 11/16/25 02:00 125/76 11/16/25 02:00 125/76 11/16/25 02:00 125/76 11/16/25 01:51 62 18 97 11/16/25 01:42 61 19 97 11/16/25 01:30 60 18 97 11/16/25 01:30 159/80 H 11/16/25 01:30 159/80 H 11/16/25 01:30 159/80 H 11/16/25 01:30 159/80 H 11/16/25 01:30 159/80 H 11/16/25 01:21 59 L 18 97 11/16/25 01:12 81 25 H 99 11/16/25 01:00 18 11/16/25 00:51 18 97 11/16/25 00:42 86 20 96 11/16/25 00:30 65 24 95 11/16/25 00:30 145/89 H 11/16/25 00:30 145/89 H 11/16/25 00:30 145/89 H 11/16/25 00:30 145/89 H 11/16/25 00:30 145/89 H 11/16/25 00:21 62 18 95 11/16/25 00:12 73 19 97 11/16/25 00:00 64 16 97 11/16/25 00:00 147/98 H 11/16/25 00:00 147/98 H 11/16/25 00:00 147/98 H 11/16/25 00:00 147/98 H 11/16/25 00:00 147/98 H 11/15/25 23:51 70 17 97 11/15/25 23:42 72 16 95 11/15/25 23:30 70 15 98 11/15/25 23:30 157/83 H 11/15/25 23:30 157/83 H 11/15/25 23:30 157/83 H 11/15/25 23:30 157/83 H 11/15/25 23:30 157/83 H 11/15/25 23:21 70 19 97 11/15/25 23:12 63 17 99 11/15/25 23:02 67 11/15/25 23:00 172/89 H 11/15/25 23:00 172/89 H 11/15/25 23:00 172/89 H 11/15/25 23:00 172/89 H 11/15/25 23:00 172/89 H 11/15/25 23:00 71 15 97 11/15/25 22:53 62 18 157/86 H 98 Room Air 11/15/25 22:51 65 18 97 11/15/25 21:58 64 22 157/86 H 95 Room Air 11/15/25 21:00 66 18 149/83 H 99 Room Air PG Care Time/CCT Total # of Minutes Spent Total Time Spent with Patient: Total time spent is greater than 50% in coordination of care (as documented) at patient's floor/unit and/or counseling patient: Coding Level of Care Code 99400 INT INP/OBS CARE 3/75MIN Diagnoses Melena K92.1
--- NOTE | 2025-11-16 10:20 | Anesthesiology Consultation ---
Date of Service November 16, 2025 Assessment & Plan Chart Review Chart Review: Acceptable Risk for Surgery Consults Requested none ASA ASA2 Proposed Anesthesia Anesthesia Type: MAC Risk / Benefits Reviewed With: PT / POA / Parent / Guardian, Accepts Plan and Informed Consent Obtained History Surgery Operation Date: 11/16/25 16:45 Proposed Procedures p Esophagogastroduodenoscopy Dr. Ted Jean MD Height/Weight Height: 5 ft 2 in Weight: 80.3 kg Allergies Allergy/AdvReac Type Severity Reaction Status Date / Time No Known Allergies Allergy Verified 10/24/25 07:22 Medications Home Medications Medication Instructions Recorded Confirmed Last Taken levothyroxine 50 mcg tablet 75 mcg PO QAM 10/09/20 11/15/25 10/24/25 05:45 atorvastatin 20 mg tablet 20 mg PO HS 09/29/25 11/15/25 10/23/25 20:00 cholecalciferol (vitamin D3) 25 0 mcg PO DAILY 09/29/25 11/15/25 10/19/25 mcg (1,000 unit) tablet (Vitamin D3) cefadroxil 500 mg capsule 500 mg PO BID #20 caps 10/25/25 11/15/25 Unknown tramadol 50 mg tablet 50 mg PO Q6H PRN pain #30 tabs 11/03/25 11/15/25 Unknown Active Medications Generic Name Dose Route Start Last Admin Trade Name Freq PRN Reason Stop Dose Admin Pantoprazole Sodium 40 mg in 10 mls @ 5 mls/min 11/16/25 09:00 11/16/25 08:23 Protonix IV 12/16/25 08:59 5 mls/min BID MELIZA Administration Famotidine 20 mg in 5 mls @ 2.5 mls/min 11/15/25 22:00 11/16/25 08:23 Pepcid 20mg Iv Push IV 12/15/25 21:59 2.5 mls/min Q12 MELIZA Administration Lactated Ringer's 1,000 mls @ 80 mls/hr 11/16/25 01:30 11/16/25 03:01 Lr IV 11/16/25 13:59 80 mls/hr .[id number] MELIZA Administration Past Medical History Medical History History of vertigo Positional with head movement, "please move slowly" History of right breast cancer Dx 1990, hx surgery Osteoarthritis Osteopenia History of colon polyps Tinnitus Hyperlipidemia Hypothyroid Past Family History Family History Father Hypertension Heart disease Mother Cancer Denies family history of Hearing loss No family history of adverse response to anesthesia No family history of bleeding disorder Allergies Stroke Asthma Past Surgical History Surgical History History of anesthesia reaction Awareness during left knee replacement surgery, could hear sounds, no pain (2016, [facility]) History of left knee replacement (2016) History of colonoscopy H/O bilateral mastectomy 1990 Social History Smoking Status: Never smoker Do You Dip or Chew Tobacco: No Hx Alcohol Use: No alcohol intake frequency: other Hx Substance Use: No substance use type: does not use Physical Exam Vital Signs Last Vital Signs Temp 36.8 C 11/15/25 17:11 Pulse 57 L 11/16/25 09:00 Resp 17 11/16/25 09:00 BP 140/84 11/16/25 09:00 Pulse Ox 98 11/16/25 09:00 O2 Del Method Room Air 11/15/25 22:53 Constitutional no acute distress ENMT Mouth: no TMJ abnormality Thyromental Distance: < 3.5 Finger Breadths Mallampati Class: II Neck normal visual inspection Respiratory normal respiratory effort Cardiovascular Rate/Rhythm: regular rate Musculoskeletal Spine: normal cervical ROM Psychiatric Orientation: alert and oriented x 3 Testing Laboratory Results 11/16/25 05:11 11/15/25 17:35 PT 11.3 Seconds (9.0-12.0) 11/15/25 17:35 INR 1.1 (0.9-1.1) 11/15/25 17:35 Blood Type A Positive 11/15/25 17:46 Antibody Screen NEGATIVE 11/15/25 17:46
[2025-11-16 10:26] VITALS: RESP 16; TEMP 97.9
--- NOTE | 2025-11-16 11:26 | GI REPORT ---
[facility] Patient: SAL RENDON : 1955 Sex at : Female Age: 70 Years Procedure: Upper GI endoscopy Date: 11/16/2025 Attending Physician: Hunter Jean MD Referring MD: Referred Self Indications: - Suspected upper gastrointestinal bleeding Medications: - Monitored Anesthesia Care Complications: - No immediate complications. Procedure: - Prior to the procedure, a History and Physical was performed, and patient medications and allergies were reviewed. The patient's tolerance of previous anesthesia was also reviewed. The risks and benefits of the procedure and the sedation options and risks were discussed with the patient. All questions were answered, and informed consent was obtained. [Anticoagulant Agents] [Days Prior to Procedure]. [ASA Grade]. After reviewing the risks and benefits, the patient was deemed in satisfactory condition to undergo the procedure. - The egd scope was introduced through the mouth and advanced to the second part of the duodenum. - The upper GI endoscopy was accomplished without difficulty. - The patient tolerated the procedure well. Findings: - The examined esophagus was normal. - One non-bleeding cratered gastric ulcer with no stigmata of bleeding was found in the prepyloric region of the stomach. The lesion was 15 mm in largest dimension. Biopsies were taken with a cold forceps for Helicobacter pylori testing from antrum and body. - A few small sessile fundic gland polyps were found in the gastric body. Biopsies were taken with a cold forceps for histology. - The examined duodenum was normal. Impression: - Normal esophagus. - Non-bleeding gastric ulcer with no stigmata of bleeding. Biopsied. - A few fundic gland polyps. Biopsied. - Normal examined duodenum. Recommendation: - Resume previous diet. - Patient has a contact number available for emergencies. The signs and symptoms of potential delayed complications were discussed with the patient. Return to normal activities tomorrow. Written discharge instructions were provided to the patient. Procedure Code(s): - 68442, Esophagogastroduodenoscopy, flexible, transoral; with biopsy, single or multiple Diagnosis Code(s): - K25.9, Gastric ulcer, unspecified as acute or chronic, without hemorrhage or perforation - K31.7, Polyp of stomach and duodenum CPT(R) - 2024 copyright [employer]. All Rights Reserved. The CPT codes, CCI edits and ICD codes generated are intended as suggestions and were generated based on input data. These codes are preliminary and upon insurance risk manager review may be revised to meet current compliance and payer requirements. The provider is responsible for the final determination of appropriate codes, and modifiers. Hunter Jean MD This document has been electronically signed. Note Initiated:11/16/2025 Note Completed:11/16/2025 11:25 AM \\[email or web address]\[email or web address]\[id number]
--- NOTE | 2025-11-16 11:39 | Anesthesiology Progress Note ---
Date of Service November 16, 2025 Anesthesia Post Procedure Vital Signs Vital Signs: Temp Pulse Pulse Pulse Resp BP BP 11/16/25 11:26 59 L 16 139/75 11/16/25 11:09 65 16 85/53 L 11/16/25 10:20 36.6 C 16 142/78 H 11/16/25 09:00 140/84 11/16/25 09:00 140/84 11/16/25 09:00 140/84 11/16/25 09:00 140/84 11/16/25 09:00 140/84 11/16/25 09:00 57 L 17 11/16/25 08:51 59 L 12 11/16/25 08:42 58 L 19 11/16/25 08:30 65 21 11/16/25 08:30 133/78 11/16/25 08:30 133/78 11/16/25 08:30 133/78 11/16/25 08:30 133/78 11/16/25 08:30 133/78 11/16/25 08:22 137/71 11/16/25 08:22 137/71 11/16/25 08:22 137/71 11/16/25 08:22 137/71 11/16/25 08:22 137/71 11/16/25 08:21 76 16 11/16/25 08:12 70 19 11/16/25 08:00 65 21 11/16/25 08:00 133/79 11/16/25 08:00 133/79 11/16/25 08:00 133/79 11/16/25 08:00 133/79 11/16/25 08:00 133/79 11/16/25 07:51 56 L 19 11/16/25 07:42 58 L 16 11/16/25 07:30 138/84 11/16/25 07:30 138/84 11/16/25 07:30 138/84 11/16/25 07:30 138/84 11/16/25 07:30 138/84 11/16/25 07:30 61 20 11/16/25 07:21 54 L 18 11/16/25 07:12 56 L 15 11/16/25 07:12 57 L 11/16/25 07:00 56 L 17 11/16/25 07:00 127/81 11/16/25 07:00 127/81 11/16/25 07:00 127/81 11/16/25 07:00 127/81 11/16/25 07:00 127/81 11/16/25 06:51 58 L 20 11/16/25 06:42 56 L 15 11/16/25 06:30 59 L 19 11/16/25 06:30 133/87 11/16/25 06:30 133/87 11/16/25 06:30 133/87 11/16/25 06:30 133/87 11/16/25 06:21 58 L 17 11/16/25 06:12 67 18 11/16/25 06:00 136/77 11/16/25 06:00 136/77 11/16/25 06:00 136/77 11/16/25 06:00 136/77 11/16/25 06:00 136/77 11/16/25 06:00 57 L 17 11/16/25 05:51 60 21 11/16/25 05:42 72 19 11/16/25 05:30 115/80 11/16/25 05:30 115/80 11/16/25 05:30 115/80 11/16/25 05:30 115/80 11/16/25 05:30 65 14 11/16/25 05:30 115/80 11/16/25 05:30 115/80 11/16/25 05:21 63 17 11/16/25 05:12 63 20 11/16/25 05:00 54 L 19 11/16/25 05:00 128/78 11/16/25 05:00 128/78 11/16/25 05:00 128/78 11/16/25 05:00 128/78 11/16/25 05:00 128/78 11/16/25 04:51 56 L 19 11/16/25 04:42 57 L 17 11/16/25 04:30 137/86 11/16/25 04:30 137/86 11/16/25 04:30 137/86 11/16/25 04:30 137/86 11/16/25 04:30 137/86 11/16/25 04:30 61 20 11/16/25 04:21 58 L 19 11/16/25 04:12 66 19 11/16/25 04:00 138/84 11/16/25 04:00 138/84 11/16/25 04:00 138/84 11/16/25 04:00 138/84 11/16/25 04:00 138/84 11/16/25 04:00 61 18 11/16/25 03:51 57 L 20 11/16/25 03:42 57 L 20 11/16/25 03:30 65 18 11/16/25 03:30 140/80 11/16/25 03:30 140/80 11/16/25 03:30 140/80 11/16/25 03:30 140/80 11/16/25 03:30 140/80 11/16/25 03:21 63 18 11/16/25 03:12 62 17 11/16/25 03:00 71 12 11/16/25 03:00 143/83 H 11/16/25 03:00 143/83 H 11/16/25 03:00 143/83 H 11/16/25 03:00 143/83 H 11/16/25 03:00 143/83 H 11/16/25 02:51 58 L 22 11/16/25 02:42 59 L 24 11/16/25 02:30 59 L 19 11/16/25 02:30 124/76 11/16/25 02:30 124/76 11/16/25 02:30 124/76 11/16/25 02:30 124/76 11/16/25 02:30 124/76 11/16/25 02:21 54 L 24 11/16/25 02:12 64 24 11/16/25 02:00 56 L 17 11/16/25 02:00 125/76 11/16/25 02:00 125/76 11/16/25 02:00 125/76 11/16/25 02:00 125/76 11/16/25 02:00 125/76 11/16/25 01:51 62 18 11/16/25 01:42 61 19 11/16/25 01:30 60 18 11/16/25 01:30 159/80 H 11/16/25 01:30 159/80 H 11/16/25 01:30 159/80 H 11/16/25 01:30 159/80 H 11/16/25 01:30 159/80 H 11/16/25 01:21 59 L 18 11/16/25 01:12 81 25 H 11/16/25 01:00 18 11/16/25 00:51 18 11/16/25 00:42 86 20 11/16/25 00:30 65 24 11/16/25 00:30 145/89 H 11/16/25 00:30 145/89 H 11/16/25 00:30 145/89 H 11/16/25 00:30 145/89 H 11/16/25 00:30 145/89 H 11/16/25 00:21 62 18 11/16/25 00:12 73 19 11/16/25 00:00 64 16 11/16/25 00:00 147/98 H 11/16/25 00:00 147/98 H 11/16/25 00:00 147/98 H 11/16/25 00:00 147/98 H 11/16/25 00:00 147/98 H 11/15/25 23:51 70 17 11/15/25 23:42 72 16 11/15/25 23:30 70 15 11/15/25 23:30 157/83 H 11/15/25 23:30 157/83 H 11/15/25 23:30 157/83 H 11/15/25 23:30 157/83 H 11/15/25 23:30 157/83 H 11/15/25 23:21 70 19 11/15/25 23:12 63 17 11/15/25 23:02 67 11/15/25 23:00 172/89 H 11/15/25 23:00 172/89 H 11/15/25 23:00 172/89 H 11/15/25 23:00 172/89 H 11/15/25 23:00 172/89 H 11/15/25 23:00 71 15 11/15/25 22:53 62 18 157/86 H 11/15/25 22:51 65 18 11/15/25 21:58 64 22 157/86 H 11/15/25 21:00 66 18 149/83 H 11/15/25 19:07 62 18 171/88 H 11/15/25 17:50 59 L 11/15/25 17:16 61 18 11/15/25 17:11 36.8 C 82 18 139/83 11/15/25 17:07 62 18 173/95 H Pulse Ox O2 Del Method 11/16/25 11:26 99 Room Air 11/16/25 11:09 97 Room Air 11/16/25 10:20 98 Room Air 11/16/25 09:00 11/16/25 09:00 11/16/25 09:00 11/16/25 09:00 11/16/25 09:00 11/16/25 09:00 98 11/16/25 08:51 99 11/16/25 08:42 98 11/16/25 08:30 96 11/16/25 08:30 11/16/25 08:30 11/16/25 08:30 11/16/25 08:30 11/16/25 08:30 11/16/25 08:22 11/16/25 08:22 11/16/25 08:22 11/16/25 08:22 11/16/25 08:22 11/16/25 08:21 11/16/25 08:12 96 11/16/25 08:00 97 11/16/25 08:00 11/16/25 08:00 11/16/25 08:00 11/16/25 08:00 11/16/25 08:00 11/16/25 07:51 96 11/16/25 07:42 95 11/16/25 07:30 11/16/25 07:30 11/16/25 07:30 11/16/25 07:30 11/16/25 07:30 11/16/25 07:30 96 11/16/25 07:21 95 11/16/25 07:12 94 11/16/25 07:12 11/16/25 07:00 95 11/16/25 07:00 11/16/25 07:00 11/16/25 07:00 11/16/25 07:00 11/16/25 07:00 11/16/25 06:51 95 11/16/25 06:42 95 11/16/25 06:30 95 11/16/25 06:30 11/16/25 06:30 11/16/25 06:30 11/16/25 06:30 11/16/25 06:21 95 11/16/25 06:12 95 11/16/25 06:00 11/16/25 06:00 11/16/25 06:00 11/16/25 06:00 11/16/25 06:00 11/16/25 06:00 97 11/16/25 05:51 97 11/16/25 05:42 97 11/16/25 05:30 11/16/25 05:30 11/16/25 05:30 11/16/25 05:30 11/16/25 05:30 11/16/25 05:30 11/16/25 05:30 11/16/25 05:21 11/16/25 05:12 98 11/16/25 05:00 96 11/16/25 05:00 11/16/25 05:00 11/16/25 05:00 11/16/25 05:00 11/16/25 05:00 11/16/25 04:51 95 11/16/25 04:42 96 11/16/25 04:30 11/16/25 04:30 11/16/25 04:30 11/16/25 04:30 11/16/25 04:30 11/16/25 04:30 97 11/16/25 04:21 96 11/16/25 04:12 95 11/16/25 04:00 11/16/25 04:00 11/16/25 04:00 11/16/25 04:00 11/16/25 04:00 11/16/25 04:00 96 11/16/25 03:51 95 11/16/25 03:42 95 11/16/25 03:30 97 11/16/25 03:30 11/16/25 03:30 11/16/25 03:30 11/16/25 03:30 11/16/25 03:30 11/16/25 03:21 96 11/16/25 03:12 96 11/16/25 03:00 99 11/16/25 03:00 11/16/25 03:00 11/16/25 03:00 11/16/25 03:00 11/16/25 03:00 11/16/25 02:51 97 11/16/25 02:42 96 11/16/25 02:30 96 11/16/25 02:30 11/16/25 02:30 11/16/25 02:30 11/16/25 02:30 11/16/25 02:30 11/16/25 02:21 97 11/16/25 02:12 97 11/16/25 02:00 96 11/16/25 02:00 11/16/25 02:00 11/16/25 02:00 11/16/25 02:00 11/16/25 02:00 11/16/25 01:51 97 11/16/25 01:42 97 11/16/25 01:30 97 11/16/25 01:30 11/16/25 01:30 11/16/25 01:30 11/16/25 01:30 11/16/25 01:30 11/16/25 01:21 97 11/16/25 01:12 99 11/16/25 01:00 11/16/25 00:51 97 11/16/25 00:42 96 11/16/25 00:30 95 11/16/25 00:30 11/16/25 00:30 11/16/25 00:30 11/16/25 00:30 11/16/25 00:30 11/16/25 00:21 95 11/16/25 00:12 97 11/16/25 00:00 97 11/16/25 00:00 11/16/25 00:00 11/16/25 00:00 11/16/25 00:00 11/16/25 00:00 11/15/25 23:51 97 11/15/25 23:42 95 11/15/25 23:30 98 11/15/25 23:30 11/15/25 23:30 11/15/25 23:30 11/15/25 23:30 11/15/25 23:30 11/15/25 23:21 97 11/15/25 23:12 99 11/15/25 23:02 11/15/25 23:00 11/15/25 23:00 11/15/25 23:00 11/15/25 23:00 11/15/25 23:00 11/15/25 23:00 97 11/15/25 22:53 98 Room Air 11/15/25 22:51 97 11/15/25 21:58 95 Room Air 11/15/25 21:00 99 Room Air 11/15/25 19:07 99 Room Air 11/15/25 17:50 11/15/25 17:16 100 Room Air 11/15/25 17:11 100 Room Air 11/15/25 17:07 100 Room Air Transfer of Care Handoff Completed per policy Notes Mental Status: alert / awake / arousable Patient Amnestic to Procedure: Yes Nausea / Vomiting: adequately controlled Pain: adequately controlled Airway Patency, RR, SpO2: stable & adequate BP & HR: stable & adequate Hydration State: stable & adequate Anesthetic Complications: no major complications apparent
[2025-11-16] MEDS: LIDOCAINE 2% 2 ML VIAL/AMP(20MG/ML) INFIL ONE (13:25)
[2025-11-16] MEDS: PROPOFOL IV EMULSION 10 MG/ML 20 ML VIAL IV ONE (13:26)
--- NOTE | 2025-11-16 15:07 | Electrocardiogram Report ---
Test Reason : Blood Pressure : */* mmHG Vent. Rate : 63 BPM Atrial Rate : 63 BPM P-R Int : 132 ms QRS Dur : 74 ms QT Int : 414 ms P-R-T Axes : 8 -6 72 degrees QTcB Int : 423 ms Normal sinus rhythm Nonspecific ST abnormality Abnormal ECG When compared with ECG of 07-Oct-2025 09:10, No significant change was found Confirmed by Dre Lu ([id number]) on 11/16/2025 3:07:29 PM Referred By: REFERRED SELF Confirmed By: Dre Lu
[2025-11-16] MEDS ORDERED: Nursing to Pharmacy Communication SCH (15:15)
[2025-11-16 15:22] VITALS: BP 125/77; O2SAT 98
--- NOTE | 2025-11-16 15:26 | Discharge Summary ---
"Discharge Summary Date of Service November 16, 2025 Principal Dx & Hospital Course #1 = Principal Diagnosis (1) Anemia: (2) Acute upper gastrointestinal bleeding: (3) Elevated alkaline phosphatase level: Plan #Anemia/ possible GI bleed | Gastric ulcer. 70-year-old female PMHx SNHL L ear, BPPV, OA, and MARIANELA s/p total R knee replacement presenting for dark stools with nausea and vomiting starting 9 days [employer]. Evaluation does reveal anemia of 10.8/36.7 with stable platelets and grossly unremarkable CMP. Alkaline phosphatase is however elevated at 156. Admission for anemia, suspected GI bleed. Recent R TKA 10/24/[address] Yee, unclear what her post op Hgb was. Has been on ASA 81mg BID for DVT prophlaxis. Presents with hgb 11.8 and heme positive stools. Denies NSAID use. GI Consulted - s/p EGD 11/16 with 15mm nonbleeding ulcer. Small sessile polyps. bx pending. Recommend PPI BID and repeat EGD in 6-8 weeks. Discussed with ortho, would still recommend DVT proph - mutually agreed on lovenox 40mg daily. Patient education provided on receiving medication and doses of PPI and lovenox for 11/17 provided prior to leaving the hospital. Instructed patient to call ortho to determine final duration of lovenox. #Elevated alkaline phosphatase - No abdominal pain, no RUQ tenderness. Recent R knee replacement, ? bone turnover response. Downtrending to 130. Recommend outpatient follow. #Hypothyroidism- Levothyroxine continued Dispo:Discharge to home today Notes For Next Care Provider Medication Changes From Visit ASA changed to Lovenox for dvt proh with recent TKA PPI BID Admission HPI Per Admitting Provider 70-year-old female PMHx SNHL L ear, BPPV, OA, and MARIANELA s/p total R knee replacement presenting for dark stools with nausea and vomiting starting 9 days [employer]. Reports that starting on 11/06/2025 she started to note that she was having dark stool, black in nature. Also reports that she has had some constipation which has been ongoing since her recent procedure on her R knee (r eplacement), as she has not been eating much. Every time that she eats, she states that she is experiencing nausea, sometimes with vomiting other times not. She states that some days are worse than others, but on the day of arrival she was only able to tolerate half an apple and a few crackers. She is not having any abdominal pain, but the vomiting does continue. She continues to experience anorexia. Her only dizziness is with position changes, none at baseline and no lightheadedness. Overall, patient's pain is tolerated with her recent knee surgery. She is denying chest pain, SOB, palpitations, abdominal pain, diarrhea, URI symptoms, LUTS, weakness, syncope, or falls. Main concern is that her stool is very dark in nature. ED evaluation CBC without leukocytosis or leukopenia, H&H 10.8/36.7, platelets stable; PT/INR WNL; CMP BUN WNL, glucose 103, alkaline phosphatase 156; troponin 6.9; CXR no acute findings.; Provided with pantoprazole 40 mg IV, famotidine 20 mg IV in ED. Please see Dr. Weston attestation for adjustments/additions to treatment plan. Discharge Exam General: NAD, vitals as above, sitting on the side of bed Pulm: breathing unlabored CV: well perfused extremities: moves all extremities Discharge Plan Discharge Items Patient Disposition: Home - Self-Care Reason For Visit: GI BLEED Discharge Diagnosis: Gastric ulcer Condition on Discharge: Fair Activity: Resume your previous activity Weightbearing: Full weightbearing Non-emergency contact: Primary Care Provider and [facility] Call non-emergency contact if: you have any medication questions, your symptoms worsen, your pain is not controlled and your temperature is above 101 Follow-up/Referrals: Ramesh Cardenas DO [Primary Care Provider] - ( follow-up within 1 week) Freda Riojas CRNP [Nurse Practitioner] - (Follow up - repeat EGD 6-8 weeks ) Diet: Regular Addtl Attending Provider Instructions: Ms. Malloy You were hospitalized after concerns for GI bleeding. You were seen by the GI team and had an EGD (upper scope) that showed a non bleeding ulcer. However, this was likely the source of bleeding. It is likely that the aspirin twice a day was contributing to causing the ulcer. For treatment of the ulcer you were started on pantoprazole twice a day. Your first dose will be a.m. 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 To prevent your ulcer from getting worse the aspirin was stopped, however you still need blood clot prevention for your recent surgery. I discussed this with a member of Dr. Yee's team and they recommended Lovenox injections once a day. I have sent in a prescription for [address] Yee's office on Friday to be sure how long they want you to utilize these injections. Please avoid any NSAIDs (ibuprofen, naproxen, aleve, etc) for pain control. Tylenol is okay to take for pain. You may still notice some darker stools over the next 1 to 2 days as the old blood is making it out of your system. If you start to have bright red bleeding in your stools, lightheadedness or dizziness please return to the ER. Is recommended that you follow-up with a GI team for repeat EGD in 6 to 8 weeks, their contact information is above. If you do not hear from them by Friday please give their office a call. Please follow-up with your PCP within 1 week. You can do normal everyday activities as your body allows. Take rest breaks if you feel tired. Do not overexert. Stop activity if you have pain, shortness of breath or feel dizzy. Follow-up appointments: Make an appointment with your primary care physician within one week of discharge. A copy of this summary will be sent to them. Every time you see your primary care physician, or any other doctor, bring your medication list, and a list of questions. CONTACT YOUR PRIMARY CARE PROVIDER if you experience any of the following: Shortness of breath or difficulty breathing Fevers or chills Feeling tired with normal activity or experiencing dizziness or fainting Difficulty following your treatment plan, or difficulty taking medications CALL 911 OR GO TO THE EMERGENCY DEPARTMENT if you experience any of the following: Severe abdominal pain or nausea/vomiting Severe chest pain, or chest pain that radiates (moves) to your jaw or arm Sudden, severe shortness of breath or difficulty breathing Thank you for allowing us to participate in your care. Pending Studies at Discharge: No Stand-Alone Forms: My [email or web address], Smoking Cessation Medications and DC Order Prescriptions: New enoxaparin [Lovenox] 40 mg/0.4 mL Syringe 40 mg subcut TODAY@0900 30 Days Qty: 12 0RF pantoprazole 40 mg Tablet,Delayed Release (Dr/Ec) 40 mg PO BID Qty: 60 0RF Continued tramadol 50 mg tablet 50 mg PO Q6H PRN (Reason: pain) Qty: 30 0RF Rx Instructions: Take 1 tab by mouth every 6 hours as needed for pain levothyroxine 50 mcg tablet 75 mcg PO QAM atorvastatin 20 mg Tablet 20 mg PO HS cholecalciferol (vitamin D3) [Vitamin D3] 25 mcg (1,000 unit) Tablet 0 mcg PO DAILY Discontinued cefadroxil 500 mg capsule 500 mg PO BID Qty: 20 0RF Discharge Orders: Discharge Order (Routine); Ordered 11/16/25 Ordered By: Floridalma Riggs/Other Patient Handouts: Enoxaparin Prefilled Syringe, Understanding Gastric Ulcers Admission Data Admit Date/Time: 11/15/25 21:40 Attending Provider: Brandee Washington Admit Provider: Luigi Weston Primary Care Provider: Ramesh Cardenas Other Providers: Luigi Weston; Hunter Jean I Hospital Stay Data Consultations 11/15/25 19:26 ED Decision to Admit Stat 11/15/25 21:58 Consult Gastroenterology Routine Procedures Performed Operation Date: 11/16/25 16:45 Actual Procedures p EGD Biopsy Cytology - Hunter Jean MD Diagnostic Imagining Performed Chest X-Ray 11/15/25 17:16 EXAM: Radiograph of the Chest 1 View INDICATION: Gastrointestinal bleeding TECHNIQUE: Frontal view of the chest. COMPARISON: 10/07/2025 FINDINGS: Lungs and pleural spaces: No consolidation or pulmonary edema. No pleural effusion or pneumothorax. Heart: Shape and configuration within normal limits allowing for technique. Mediastinum: Normal contour. Bones/joints: No fracture, erosion or dislocation. Soft tissues: No abnormality noted. No radiopaque foreign body noted. Vasculature: Mild ectatic calcified aorta. Upper abdomen: No visible free air subjacent to the diaphragms. IMPRESSION: No acute cardiopulmonary disease. ACT 112: N/A Electronically signed by Sheila Tate 11-15-2025 6:31 PM Pending Results Patient Have Any Pending Studies at Discharge: No Discharge Instructions Given to Patient (Per Discharging Provider) Ms. Gama Rosario were hospitalized after concerns for GI bleeding. You were seen by the GI team and had an EGD (upper scope) that showed a non bleeding ulcer. However, this was likely the source of bleeding. It is likely that the aspirin twice a day was contributing to causing the ulcer. For treatment of the ulcer you were started on pantoprazole twice a day. Your first dose will be a.m. 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 To prevent your ulcer from getting worse the aspirin was stopped, however you still need blood clot prevention for your recent surgery. I discussed this with a member of Dr. Yee's team and they recommended Lovenox injections once a day. I have sent in a prescription for [address] Yee's office on Friday to be sure how long they want you to utilize these injections. Please avoid any NSAIDs (ibuprofen, naproxen, aleve, etc) for pain control. Tylenol is okay to take for pain. You may still notice some darker stools over the next 1 to 2 days as the old blood is making it out of your system. If you start to have bright red bleeding in your stools, lightheadedness or dizziness please return to the ER. Is recommended that you follow-up with a GI team for repeat EGD in 6 to 8 weeks, their contact information is above. If you do not hear from them by Friday please give their office a call. Please follow-up with your PCP within 1 week. You can do normal everyday activities as your body allows. Take rest breaks if you feel tired. Do not overexert. Stop activity if you have pain, shortness of breath or feel dizzy. Follow-up appointments: Make an appointment with your primary care physician within one week of discharge. A copy of this summary will be sent to them. Every time you see your primary care physician, or any other doctor, bring your medication list, and a list of questions. CONTACT YOUR PRIMARY CARE PROVIDER if you experience any of the following: Shortness of breath or difficulty breathing Fevers or chills Feeling tired with normal activity or experiencing dizziness or fainting Difficulty following your treatment plan, or difficulty taking medications CALL 911 OR GO TO THE EMERGENCY DEPARTMENT if you experience any of the following: Severe abdominal pain or nausea/vomiting Severe chest pain, or chest pain that radiates (moves) to your jaw or arm Sudden, severe shortness of breath or difficulty breathing Thank you for allowing us to participate in your care. Supervising Physician Co-Signing Physician Notes JESSY Supervision Note: I did not personally see or examine the patient today, but I verified all najera points of JESSY Nunes's assessment and plan with the following exceptions/additions: None Total Time Total Time Spent Total Time Spent (In Minutes): Time spent day of discharge 40 minutes including direct patient care, medication reconciliation, documentation, review of labs and images, and coordination of care. discussed withGI Coding Level of Care Code 51375 INP/OBS DISCH >30 MIN Diagnoses Anemia D64.9 Acute upper gastrointestinal bleeding K92.2 Elevated alkaline phosphatase level R74.8"
[2025-11-16] MEDS ORDERED: ENOXAPARIN INJ 40 MG/0.4 ML SYR SQ SCH (15:30)
[2025-11-16] MEDS: ENOXAPARIN INJ 40 MG/0.4 ML SYR SQ ONE (16:12)
[2025-11-16 17:56] VITALS: PULSE 65
[2025-11-17] MEDS ORDERED: ENOXAPARIN INJ 40 MG/0.4 ML SYR SQ SCH (09:00)
== END 2025-11-16 18:25 | disposition home or self-care (01) ==
LOC: EDINP 17:06 → ED 17:06 → SUATTDRO 21:40 → EDINP 21:58 → 2W 11-16 13:11